=== PATIENT | male | born 1960 | race American Indian/Alaskan Native ===

== ENCOUNTER 2017-10-28 08:00 | Outpatient (CLI) | payer MEDICARE ==
--- NOTE | 2017-10-28 13:52 | Magnetic Resonance Report ---
MRI OF THE BRAIN WITHOUT CONTRAST: HISTORY: Parkinsonism PROCEDURE: Multiplanar, multisequence MR imaging of the brain without IV contrast was performed. FINDINGS: Compared to the CT head dated 07/09/16. Mild cortical volume loss and mild nonspecific chronic white matter changes are identified. Chronic cortical infarct in the left anterior frontal lobe measures approximately 3.1 x 1.9 cm in axial plane. No evidence for acute ischemia, hemorrhage or mass. No chronic infarct or extra-axial fluid collection. The midline structures are central. The basal cisterns are patent. Normal ventricular size. The orbital cavities and sella turcica demonstrate no abnormality. The visualized paranasal sinuses and mastoid air cells are well aerated. IMPRESSION: No acute intracranial process. Mild volume loss and chronic white matter changes. Chronic cortical infarct or encephalomalacia in the left anterior frontal lobe. No change since a CT head dated 07/09/16.
== END 2017-10-28 08:01 | disposition home or self-care (01) ==
LOC: MRI 08:00
PROVIDERS: ATTEND Psychiatry & Neurology Neurology
DX: G21.19 Other drug induced secondary parkinsonism (principal); F20.9 Schizophrenia, unspecified; F31.9 Bipolar disorder, unspecified; F17.200 Nicotine dependence, unspecified, uncomplicated
CPT/HCPCS: 70551